=== PATIENT | female | born 1980 | race Caucasian/White ===

== ENCOUNTER 2017-05-06 11:23 | Emergency (ER) | payer MEDICAID ==
[2017-05-06 14:27] LABS: BASOPHIL % 0.6 % (0-2); PLATELET COUNT 346 x10^3mcL (130-400); RED CELL DISTRIBUTION WIDTH 13.1 % (11.5-14.5)
[2017-05-06 14:28] LABS: AMPHETAMINE QUAL UR POSITIVE (NEG <=1000); CALCIUM 9.7 mg/dL (8.5-10.1); CARBON DIOXIDE 26.4 mmol/L (21-32); CHLORIDE SERUM 101 mmol/L (98-107); CREATININE SERUM 0.8 mg/dL (0.6-1.0); GFR1 > 60 mL/min; GLUCOSE SERUM 123 mg/dL (74-106); POTASSIUM SERUM 3.2 mmol/L (3.5-5.1); SODIUM SERUM 137 mmol/L (136-145)
[2017-05-06 14:41] LABS: ALKALINE PHOSPHATASE 60 U/L (46-116); ALT/SGPT 31 U/L (14-59); AST/SGOT 18 U/L (15-37); BILIRUBIN TOTAL 0.5 mg/dL (0.20-1.00); T4(THYROXINE) 9.6 ug/dL (4.7-13.3); TOTAL PROTEIN, SERUM 7.8 g/dL (6.4-8.2)
[2017-05-06 16:28] VITALS: BP 128/73
== END 2017-05-06 16:55 | disposition home or self-care (01) ==
LOC: ED 11:23
PROVIDERS: Emergency Medicine
DX: F43.20 Adjustment disorder, unspecified (principal); F15.20 Other stimulant dependence, uncomplicated; F19.90 Other psychoactive substance use, unspecified, uncomplicated; E87.6 Hypokalemia
CPT/HCPCS: 83880; J7030; Q0092